=== PATIENT | female | born 1955 | race Caucasian/White ===

== ENCOUNTER 2024-11-26 16:41 | Emergency (ER) | payer MEDICARE, BC, SELFPAY ==
[2024-11-26 16:46] VITALS: BP 153/82; PULSE 87; RESP 15; TEMP 36.2; O2SAT 96
--- NOTE | 2024-11-26 17:25 | W.ED.GENAD ---
Discharge Plan Disposition Patient Disposition: Home Discharge Details Clinical Impression: Epistaxis Primary Care Provider: Atif Reyes ED Provider: Christophe Renee Home Meds and New Rx's Prescriptions: New fluticasone propionate [24 Hour Allergy Relief] 50 mcg/actuation spray,suspension 1 spray intranasal DAILY Qty: 16 0RF Rx Instructions: administer into each nostril Zyrtec 10 mg capsule 10 mg PO DAILY PRNQty: 30 0RF Continued zolpidem 5 MG tablet 5 mg PO HS sertraline 50 MG tablet 100 mg PO DAILY pravastatin 40 MG tablet 40 mg PO DAILY metformin 500 mg tablet extended release 24 hr 500 mg PO DAILY lisinopril 5 mg tablet 5 mg PO DAILY Discharge Instructions Instructions: Humidifiers, Nosebleeds ED Additional Instructions: Please follow-up with your primary care provider regarding your visit to the emergency department today. Be sure to discuss results of all test performed here today to include radiology, and laboratory testing as well as results for any pending cultures. Should your symptoms worsen, or if you develop new concerning symptoms, please return immediately emergency department for further evaluation. I would recommend starting the prescribed Flonase and Zyrtec to help manage her likely chronic rhinitis (inflammation of the nose likely secondary to allergies) which I believe was the underlying cause to your nosebleed today. A referral to ENT was also placed for you to follow-up with if you have continued symptoms. HPI General Date/Time Provider Initiated Documentation: 11/26/24 17:23. HPI Narrative: MDM/Narrative: Patient presents as above. Vital signs notable for mild hypertension. Physical exam shows scant amount of ongoing epistaxis, through both naris, concerning for possible posterior nosebleed. No blood in the oropharynx. Nose clamp applied to bilateral naris, after 30 minutes patient was still having recurrent bleeding mostly on the right side. As such patient was instructed to blow her nose, and then Afrin was applied to both nostrils. Again she underwent nasal clamping for 30 minutes which resolved epistaxis. Patient instructed to follow-up with her primary care, would recommend starting her on Zyrtec as well as Flonase for reported history of seasonal allergies, and we will provide a referral to ENT for further management. Disposition: Home HPI: The patient is a 69-year-old female with a medical history of hypertension and diabetes who presented with epistaxis. She experienced an unexpected nosebleed while raking outside and noticed blood dripping onto her arm. This occurred approximately an hour before she called her [id number], who then brought her to the emergency department. The patient reports feeling well otherwise and has no known bleeding disorders. She is not on anticoagulant therapy. For the past few weeks, she has been experiencing allergy symptoms, including increased mucus production and difficulty breathing through one nostril upon waking. The nosebleed began on the left side and, after about 20 minutes, started on the right side. She has not taken Zyrtec for several months due to its sedative effects. There has been no recent facial trauma. ROS: Negative besides as mentioned above Exam: Vital signs: Reviewed. General Appearance: Alert and oriented. No acute distress. HEENT: Blood noted on both sides of the nasal cavity. No bleeding source identified. Neck: Supple, full range of motion, no observable masses, No meningeal sign. Respiratory: No Respiratory distress. No tachypnea. Cardiovascular: RRR, no edema. Gastrointestinal: Soft, nondistended, No rebound tenderness. Back: No midline tenderness to palpation or palpable step-offs of the C/T/L spine. Skin: Warm and dry, no rash. Neurological: Normal Gait, Grossly intact. Psychiatric: Appropriate for situation. Related Data Home Medications ?Medication ?Instructions ?Recorded ?Confirmed pravastatin 40 mg tablet 40 mg PO DAILY 09/07/17 11/26/24 sertraline 50 mg tablet 100 mg PO DAILY 09/07/17 11/26/24 zolpidem 5 mg tablet 5 mg PO HS 09/07/17 11/26/24 cetirizine 10 mg capsule (Zyrtec) 10 mg PO DAILY PRN #30 caps 11/26/24 fluticasone propionate 50 1 spray intranasal DAILY #16 grams 11/26/24 mcg/actuation nasal spray,suspension (24 Hour Allergy Relief) lisinopril 5 mg tablet 5 mg PO DAILY 11/26/24 11/26/24 metformin 500 mg tablet,extended 500 mg PO DAILY 11/26/24 11/26/24 release 24 hr Previous Rx's ?Medication ?Instructions ?Recorded cetirizine 10 mg capsule (Zyrtec) 10 mg PO DAILY PRN #30 caps 11/26/24 fluticasone propionate 50 1 spray intranasal DAILY #16 grams 11/26/24 mcg/actuation nasal spray,suspension (24 Hour Allergy Relief) Allergies Allergy/AdvReac Type Severity Reaction Status Date / Time Penicillins Allergy Skin Rash Unverified 11/26/24 16:52 shellfish derived Allergy Skin Rash Unverified 11/26/24 16:52 General Stated Complaint: Epistaxis PETE: 4 Course Vital Signs Vital signs: Vital Signs Temperature 36.2 C L 11/26/24 16:46 Pulse 87 11/26/24 16:46 Respiratory Rate 15 11/26/24 16:46 Blood Pressure 153/82 H 11/26/24 16:46 Pulse Oximetry 96 11/26/24 16:46 Temperature 36.2 C L 11/26/24 16:46 Temperature Source Temporal Artery Scan 11/26/24 16:46 Pulse 87 11/26/24 16:46 Respiratory Rate 15 11/26/24 16:46 Blood Pressure 153/82 H 11/26/24 16:46 Blood Pressure Position Sitting 11/26/24 16:46 Pulse Oximetry 96 11/26/24 16:46 Oxygen Delivery Method Nasal Cannula 11/26/24 16:46 Pain Level 0 11/26/24 16:46 PFSH All Active Problems (Updated 11/26/24 @ 18:46 by Christophe Renee MD) Epistaxis (Acute) Social History Smoking/Tobacco Use Status: Current every day Tobacco Type: cigarettes Smoking risk assessment performed?: Yes Alcohol Intake: never Drug use: Never Substance use type: does not use Housing: house Do you feel safe in your relationship?: Yes
[2024-11-26] MEDS: Oxymetazolone 0.05% SPRAY 15 ML BTL NS (18:01)
== END 2024-11-26 19:05 | disposition home or self-care (01) ==
LOC: ER 19:28
PROVIDERS: Emergency Provider General Practice; PCP Family Medicine
DX: R04.0 Epistaxis (principal); I10 Essential (primary) hypertension
CPT/HCPCS: 30905